=== PATIENT | female | born 1960 | race Caucasian/White ===

== ENCOUNTER → 2020-07-31 11:43 | Outpatient (CLI) | payer MEDICARE, MEDICAID, SELFPAY ==
--- NOTE | ~2020-07-31 | MM_ITS ---
EXAMINATION: MM screening dipika BI w ryder HISTORY: Screening mammogram TECHNIQUE: Craniocaudal and mediolateral oblique 3-D tomosynthesis images were obtained and synthetic 2-D images were generated. CAD analysis was submitted and interpreted. COMPARISON: No prior mammogram is currently available for comparison at this institution. BREAST PARENCHYMAL COMPOSITION: The breasts are almost entirely fatty. FINDINGS: There is no evidence of suspicious mass, calcification, or architectural distortion to sugg est malignancy in either breast. IMPRESSION: 1. No mammographic evidence of malignancy. 2. Recommend routine screening mammography in one year. BI-RADS Category 1: Negative Reviewed, dictated and finalized at location A.
--- NOTE | ~2020-07-31 | CT_ITS ---
EXAMINATION:CT lung screening DATE: 07/31/2020 12:00 INDICATION: Personal history of tobacco dependence. Current smoker with 45 pack year history. TECHNIQUE: Computed tomography (CT) of the chest was performed without intravenous contrast. Automate d exposure control and iterative reconstruction technique were employed. The dose-length product (DLP ) was 257.75 mGy-cm. COMPARISON: Chest CT 02/15/2015 FINDINGS: The lungs demonstrate mild atelectasis. In the right upper lobe, there is a new 7 mm spicul ated nodule. There is a new 4 mm nodule in right upper lobe. No pleural effusion. Partially visualize d is a 2.5 cm subcutaneous mass in the upper back to the left of midline, likely a sebaceous cyst. Th e heart size is normal. There are coronary artery calcifications. No pericardial effusion. There is e ctasia of ascending aorta measuring 4.3 cm. There is a small sliding hiatal hernia. There is moderate thoracic spondylosis. There is chronic anterior wedging of T12 vertebral body. IMPRESSION: 1. Lung-RADS category 4A: Suspicious. Noncontrast, low-dose chest CT is recommended in 3 months. Reviewed, dictated and finalized at location B. IMPRESSION: 1. Lung-RADS category 4A: Suspicious. Noncontrast, low-dose chest CT is recomme nded in 3 months.
--- NOTE | ~2020-07-31 | DEXA_ITS ---
Bone Density Report Name: Tequila Watson Age: 59 Sex: Female Ethnicity: White Date of : 1960 Indication: postmenopausal; screening for osteoporosis; height loss; prior fracture; asthma or emphysema; hysterectomy; Referring Provider: Randy, Mary Carmen Study: Bone densitometry was performed. Exam Date: July 31, 2020 Accession number: [id number] Bone Density: Region BMD T-score Z-score Classification AP Spine (L1-L4) 1.274 2.1 3.3 Normal Femoral Neck (Left) 0.731 -1.1 0.1 Osteopenia Total Hip (Left) 1.033 0.7 1.6 Normal Femoral Neck (Right) 0.729 -1.1 0.1 Osteopenia Total Hip (Right) 1.051 0.9 1.7 Normal Total Hip Mean 1.042 0.8 1.7 Normal World Health Organization criteria for BMD impression classify patients as: Normal (T-score at or above -1.0), Osteopenia (T-score between -1.0 and -2.5), or Osteoporosis (T-score at or below -2.5). 10-year Fracture Risk: FRAX not reported because: Prior hip or vertebral fracture Clinical Information Provided by Patient: Have had a previous hip or vertebral fracture Has had a low trauma fracture Smokes Has used the following medications: Vitamin D, MTV Has the following medical conditions: Asthma or Emphysema, Hysterectomy Patient maximum height was 67.0 Menopause Age: 45 No regular weight bearing exercise Drinks caffeinated beverages Onset of menses at age 13 Number of children 4 Impression: The patient has low bone mass, based on the Left Femoral Neck T-score. The patient has risk factors, including: smoking, previous fracture. Discussion: INCREASED RISK OF FRACTURE DUE TO HISTORY OF FRACTURE. The patient's previous fracture puts the patient at high risk of a future fracture. In untreated patients, the risk of osteoporotic fracture increases approximately two-fold for each 1.0 SD decrease in T-score. Low bone density is not the only risk factor for fracture; also consider factors such as patient's age, frailty or poor health, risk of falling, risk of injury, previous osteoporotic fracture, family history of osteoporosis, cigarette smoking, low body weight, etc. Not everyone with a low trauma fracture has osteoporosis; osteomalacia and other metabolic bone disorders should also be considered. Patients who have osteoporosis should be evaluated for specific diseases and conditions (secondary causes) that may cause or contribute to bone loss and fracture risk. National Osteoporosis Foundation (NOF) recommends pharmacologic intervention for patients with a prior hip or vertebral fracture regardless of BMD T-score. The patient should follow a healthful lifestyle (good nutrition with adequate calcium and vitamin D, and appropriate weight-bearing exercise). Follow-Up: Consider a repeat BMD and Vertebral Fracture Assessment (VFA) exam in 2 years or sooner if medica
== END ==
PROVIDERS: PCP Nurse Practitioner Family; Visit Provider Nurse Practitioner Family
DX: Z12.2 Encounter for screening for malignant neoplasm of respiratory organs (principal); Z87.891 Personal history of nicotine dependence; Z78.0 Asymptomatic menopausal state; Z12.31 Encounter for screening mammogram for malignant neoplasm of breast; R91.8 Other nonspecific abnormal finding of lung field
CPT/HCPCS: 71271; 77063; 77067; 77080

== ENCOUNTER 2020-08-22 12:24 | Outpatient (CLI) | payer MEDICARE, MEDICAID, SELFPAY ==
--- NOTE | 2020-08-22 | ECHO_ITS ---
Patient Info Name: Tequila Watson Age: 59 years : 1960 Gender: Female Ht: 67 in Wt: 220 lbs BSA: 2.21 m2 HR: 93 bpm BP: 145 / 80 mmHg Heart Rhythm: Sinus Rhythm Exam Date: 08/22/2020 12:54 PM Exam Location: [facility] Patient Status: Outpatient Admit Date: 08/22/2020 Staff Ordering Physician: Randy, Mary Carmen RENDON Truck Loader Overhead Crane: Loreta Malcolm RDCS Attending Provider: Randy, Mary Carmen RENDON Exam Type: CA echo doppler color flow Study Info Indications - chest pain Complete two-dimensional, color flow and Doppler transthoracic echocardiogram is performed. Summary 1. Complete two-dimensional, color flow and Doppler transthoracic echocardiogram is performed. 2. Left ventricular chamber dimension is normal. 3. Left ventricular systolic function is normal, estimated at 60-65%. 4. The left ventricular diastolic function is grade I diastolic dysfunction. 5. E/e' 9 is minimally elevated. 6. No pulmonary hypertension, estimated pulmonary arterial systolic pressure is 21 mmHg. Left Ventricle E/e' 9 is minimally elevated. Left ventricular chamber dimension is normal. Left ventricular systolic function is normal, estimated at 60-65%. The left ventricular diastolic function is grade I diastolic dysfunction. Right Ventricle Right ventricular chamber dimension is normal. Right ventricular systolic function is normal. Left Atria Left atrial chamber dimension is normal. Right Atria Right atrial chamber dimension is normal. Aortic Valve The aortic valve is trileaflet. There is no aortic valve stenosis. There is no aortic valve regurgitation. Pulmonic Valve There is no pulmonic regurgitation. Mitral Valve There is no mitral valve stenosis. There is no mitral valve regurgitation. Tricuspid Valve There is no tricuspid valve regurgitation. No pulmonary hypertension, estimated pulmonary arterial systolic pressure is 21 mmHg. Pericardium/Pleural There is no pericardial effusion. Inferior Vena Cava Normal inferior vena cava with >50% collapse upon inspiration consistent with normal right atrial pressure, 5 mmHg. Aorta The aortic root size at the sinus of Valsalva is normal. Left Ventricular Outflow Tract Name Value Normal LVOT 2D LVOT Diameter 2.1 cm LVOT Doppler LVOT Peak Gradient 7 mmHg LVOT Mean Gradient 3 mmHg LVOT VTI 24 cm LVOT VTI/AV VTI Ratio 0.8 LVOT Stroke Volume 84 ml LVOT CO 17.5 l/min LVOT CI 7.9 l/min/m2 Pulmonic Valve Name Value Normal PV Doppler PV Peak Gradient 5 mmHg Mitral Valve Name
== END 2020-08-22 12:25 | disposition home or self-care (01) ==
PROVIDERS: PCP Nurse Practitioner Family; Visit Provider Nurse Practitioner Family
DX: R07.9 Chest pain, unspecified (principal)
CPT/HCPCS: 93306

== ENCOUNTER 2020-10-19 22:30 | Emergency (ER) | payer MEDICARE, MEDICAID, SELFPAY ==
[2020-10-19 22:39] VITALS: BP 140/90; PULSE 90; RESP 20; TEMP 36.5; O2SAT 96
--- NOTE | 2020-10-19 22:44 | ECG_ITS ---
Measurements Intervals [place] Rate: 81 P: 51 [place]: 162 QRS: -23 QRSD: 104 T: 37 QT: 386 QTc: 449 Interpretive Statements SINUS RHYTHM DELAYED PRECORDIAL R/S TRANSITION INFERIOR INFARCT, AGE INDETERMINATE BASELINE WANDER- I, II, III, AVR, AVL, AVF, V1-V6 ABNORMAL ECG Electronically Signed On 10-20-2020 6:51:21 CDT by Ronan Pedroza D.O.
[2020-10-19 22:53] LABS: Basophils Absolute Auto 0.1 K/mm3 (0.0-0.1); Eosinophils Absolute Auto 0.5 K/mm3 (0-0.3); Eosinophils Percent Auto 5.2 % (0-4.4); Hematocrit 39.9 % (37.0-47.0); Hemoglobin 13.2 g/dL (12.0-15.0); Immature Granulocyte Absolute 0.04 K/mm3 (0.00-0.031); Immature Granulocyte Percent A 0.5 % (0-0.5); Lymphocytes Absolute Auto 2.91 K/mm3 (0.9-3.2); Lymphocytes Percent Auto 33.7 % (18.3-44.2); Mean Corpuscular HGB Conc 33.1 g/dl (32-36); Mean Corpuscular Hemoglobin 30.6 pg (26-34); Mean Corpuscular Volume 92.6 fl (80-100); Mean Platelet Volume 10.3 fl (7.4-10.4); Monocytes Absolute Auto 0.7 K/mm3 (0.1-0.6); Monocytes Percent Auto 7.6 % (2.6-8.5); Neutrophils Absolute Auto 4.5 K/mm3 (1.3-6.7); Platelet Count Result 252 k/mm3 (150-375); Red Blood Count 4.31 M/mm3 (4.2-5.4); Red Cell Distribution Width 13.8 % (11.5-14.5); White Blood Count 8.6 K/mm3 (4.5-10.0)
--- NOTE | 2020-10-19 23:00 | PC.NURSE ---
Called pt. for repeat ekg. no answer.
[2020-10-19 23:04] LABS: Anion Gap 7 mmol/L (8-16); Blood Urea Nitrogen 19 mg/dL (7-17); Calcium 9.2 mg/dL (8.4-10.2); Carbon Dioxide 29 mmol/L (22-30); Chloride 105 mmol/L (98-107); Estimated CRCL calculation 92 ml/min; Estimated Glomerular Filt Rate > 60; Glucose 171 mg/dL (65-105); Potassium 3.8 mmol/L (3.4-5.0); Sodium 141 mmol/L (137-145)
--- NOTE | 2020-10-19 23:10 | PC.NURSE ---
called pt. for repeat ekg 2x no answer
== END 2020-10-19 23:10 | disposition left against medical advice (07) ==
PROVIDERS: Emergency Provider Emergency Medicine; PCP Nurse Practitioner Family
DX: R06.02 Shortness of breath (principal)
CPT/HCPCS: 36415; 80048; 85025; 93005; 99199

== ENCOUNTER → 2020-11-13 10:08 | Outpatient (CLI) | payer MEDICARE, MEDICAID, SELFPAY ==
--- NOTE | ~2020-11-13 | CT_ITS ---
EXAMINATION: CT diagnostic chest wo con DATE: 11/13/2020 10:30 INDICATION: Multiple lung nodules, follow-up of abnormal lung screening CT TECHNIQUE: Computed tomography (CT) of the chest was performed without intravenous contrast. The dose -length product (DLP) was 566.37 mGy-cm. Automated exposure control and iterative reconstruction tech [facility] were employed. COMPARISON: 07/31/2020 FINDINGS: A spiculated 9 mm nodule of the right upper lobe on image 23 previously measured 7 mm. The previously described 4 mm nodule of the right upper lobe is no longer evident, likely resolved infect ion/inflammation. There is mild atelectasis of the lower lobes. The lungs are free of acute opacities . There is no pleural effusion or pneumothorax. No pathologically enlarged thoracic lymph nodes are i dentified. The heart size is normal. Ectasia of the ascending aorta is again noted measuring up to 4. 3 cm. There is calcified coronary artery atherosclerosis. There is moderate thoracic spondylosis. Chr onic anterior wedging of the T12 vertebral body is again noted. IMPRESSION: 1. Enlarging right upper lobe nodule. CT-guided biopsy is recommended. Reviewed, dictated and finalized at location A.
== END ==
PROVIDERS: PCP Nurse Practitioner Family; Visit Provider Nurse Practitioner Family
DX: R91.8 Other nonspecific abnormal finding of lung field (principal)
CPT/HCPCS: 71250

== ENCOUNTER 2021-03-06 08:25 | Emergency (ER) | payer OTHER, SELFPAY ==
[2021-03-06 08:44] VITALS: BP 90/37; PULSE 92; RESP 18; TEMP 36.4; O2SAT 98
--- NOTE | 2021-03-06 08:58 | ED.SKABFB ---
HPI - Skin/Abscess/Foreign Bdy General Chief complaint: Skin/Abscess/Foreign Body Stated complaint: rash Source: patient and RN notes reviewed Limitations: no limitations History of Present Illness HPI narrative: The patient, on several meds, presents with skin eruption. Patient states she is 1/2-week history of pink, crusting, slightly itchy and painful eruption on her face bilaterally. She has had previous skin eruption in the past; symptoms are mild, worse with scratching. No abscess/induration, S streaking, fever. She has a prior history of known hypotension, COPD Related Data Allergies Allergy/AdvReac Type Severity Reaction Status Date / Time No Known Drug Allergies Allergy Unknown Unverified 05/23/20 11:30 Review of Systems Review of Systems: General/Constitutional: No weight loss,fever Eyes: N0: Redness,discharge Ears/Nose/Throat: No: Epistaxis,ear discharge Respiratory: Denies: Hemoptysis Gastrointestinal: No Vomiting, Bleeding-rectal Skin: No Lumps, REPORTS eruption Neurologic: No Focal Weakness,Sz Hematologic: Denies: Petechiae/Purpura Psychiatric: No: Suicida ideationl All Other Systems: Reviewed and Negative [facility] Family History Family History (System 05/23/20 @ 11:30 by Rolo Snyder) Mother Hypertension Family history of coronary artery disease Father Family history of liver disease Social History Social History (System 05/23/20 @ 11:30 by Rolo Snyder) Gender identity (if verbalized by the patient): Female Comments At time of signature, agree with nursing past medical, surgical, social and family history. There is no relevant family history pertinent to the presenting complaint Exam Narrative: General Appearance: Head: Normocephalic Eye: PERRLA, Conjunctiva clear Ear: External ear normal Nose: Normal nose, Nare clear Mouth/Throat: Normal appearing Neck Exam: Supple Respiratory: Airway patent, No respiratory distress Musculoskeletal: Moves all extremities, Non tender Skin: Warm, Dry (small, impetiginous crusting isolated macular papular skin eruption of left cheek, right neck ) Neurological: A&O x3 Psychiatric: Normal mood, Normal affect Course Vital Signs Vital signs: Vital Signs Temperature 97.6 F 03/06/21 08:44 Pulse Rate 92 03/06/21 08:44 Respiratory Rate 18 03/06/21 08:44 Blood Pressure 90/37 L 03/06/21 08:44 Pulse Oximetry 98 03/06/21 08:44 Temperature 97.6 F 03/06/21 08:44 Pulse Rate 92 03/06/21 08:44 Respiratory Rate 18 03/06/21 08:44 Blood Pressure 90/37 L 03/06/21 08:44 Pulse Oximetry 98 03/06/21 08:44 Discharge Plan Discharge Clinical Impression: Impetigo Patient Disposition: Home, Self-Care Condition: Stable Instructions: Impetigo (ED) Additional Instructions: Stop clindamycin if diarrhea occurs Take clindamycin with food, antacid, and or probiotic Keep photo log of area Prescriptions: New clindamycin HCl 300 mg capsule 300 mg PO TID Qty: 21 RF: 0 mupirocin 2 % ointment 1 applic TOPICAL TID Qty: 30 RF: 0 Follow-up/Referrals: Erwin,Lacy Pedro MD [Primary Care Provider] -
[2021-03-06 09:03] VITALS: BP 112/56
== END 2021-03-06 09:03 | disposition home or self-care (01) ==
PROVIDERS: Emergency Provider Emergency Medicine; PCP Family Medicine
DX: L01.00 Impetigo, unspecified (principal); J44.9 Chronic obstructive pulmonary disease, unspecified; Z86.73 Personal history of transient ischemic attack (TIA), and cerebral infarction without residual deficits; K21.9 Gastro-esophageal reflux disease without esophagitis; G47.30 Sleep apnea, unspecified
CPT/HCPCS: 99213; G0463

== ENCOUNTER 2021-03-14 09:24 | Emergency (ER) | payer OTHER, SELFPAY ==
--- NOTE | ~2021-03-14 | XR_ITS ---
EXAMINATION: XR chest 2V DATE: 03/14/2021 09:50 INDICATION: COPD presenting with shortness of breath TECHNIQUE: frontal and lateral views of the chest were obtained. COMPARISON: Chest radiograph dated 04/11/2017 FINDINGS: Small nodular opacity projects between the anterior right first and second ribs which is better appre ciated on prior CT. No other airspace opacities, pulmonary edema, pleural effusion or pneumothorax. T he cardiomediastinal silhouette is normal. Mild thoracic spondylosis. Chronic mild anterior wedging a t T12. IMPRESSION: 1. No acute cardiopulmonary disease. 2. Right apical nodule which is been enlarging on prior chest CTs, suspicious for primary bronchogeni c carcinoma for which CT guided biopsy is been previously recommended. Reviewed, dictated and finalized at location A. BARREL LEADER IMPRESSION: 1. No acute cardiopulmonary disease. 2. Right apical nodule which is been enlarging on prior chest CTs, suspicious f or primary bronchogenic carcinoma for which CT guided biopsy is been previously recommended.
[2021-03-14 09:22] VITALS: BP 133/96; PULSE 81; RESP 16; TEMP 36.6; O2SAT 96
--- NOTE | 2021-03-14 09:51 | ED.URI ---
HPI - URI/Sore Throat General Chief Complaint: Weakness Stated Complaint: ? covid Time Seen by Provider: 03/14/21 09:50 Source: patient Mode of arrival: EMS Limitations: clinical condition History of Present Illness HPI Narrative: 60-year-old female Not Covid immunized Several family contacts are Covid positive, and another child was in the ER and tested last night with results still pending Patient reports Covid consistent symptoms such as loss of taste, subjective fever, fatigue and weakness She reports not much in the way of SOB or cough Related Data Home Medications Medication Instructions Recorded Confirmed albuterol sulfate INHALATION 03/14/21 carisoprodol 03/14/21 03/14/21 pantoprazole PO 03/14/21 tiotropium bromide [Spiriva INHALATION 03/14/21 Respimat] Allergies Allergy/AdvReac Type Severity Reaction Status Date / Time Latex, Natural Rubber AdvReac Itching Verified 03/14/21 09:33 PENDING SALE TO [facility] Past Medical History Medical History (Updated 03/14/21 @ 11:03 by Osmel Fuentes MD) Lung nodule Family History Family History Mother Hypertension Family history of coronary artery disease Father Family history of liver disease Social History Social History Gender identity (if verbalized by the patient): Female Course Vital Signs Vital signs: Vital Signs Temperature 36.6 C 03/14/21 09:22 Pulse Rate 81 03/14/21 09:22 Respiratory Rate 16 03/14/21 09:22 Blood Pressure 133/96 H 03/14/21 09:22 Pulse Oximetry 96 03/14/21 09:22 Temperature 36.6 C 03/14/21 09:22 Pulse Rate 81 03/14/21 09:22 Respiratory Rate 16 03/14/21 09:22 Blood Pressure 133/96 H 03/14/21 09:22 Pulse Oximetry 96 03/14/21 09:22 MDM - URI/Sore Throat Lab Data Result diagrams: 03/14/21 09:35 03/14/21 09:36 Labs: Lab Results 03/14/21 03/14/21 03/14/21 Range/Units 09:35 09:36 09:52 WBC 5.1 (4.5-10.0) K/mm3 RBC 4.95 (4.2-5.4) M/mm3 Hgb 15.3 H (12.0-15.0) g/dL Hct 46.1 (37.0-47.0) % MCV 93.1 (80-100) fl MCH 30.9 (26-34) pg MCHC 33.2 (32-36) g/dl RDW 14.0 (11.5-14.5) % Plt Count 189 (150-375) k/mm3 MPV 10.9 H (7.4-10.4) fl Immature Gran % (Auto) 0.2 (0-0.5) % Neut % (Auto) 59.3 (45.5-73.1) % Lymph % (Auto) 28.8 (18.3-44.2) % [place] % (Auto) 8.4 (2.6-8.5) % Eos % (Auto) 2.7 (0-4.4) % Baso % (Auto) 0.6 (0.2-1.2) % Lymph # (Auto) 1.47 (0.9-3.2) K/mm3 [place] # (Auto) 0.4 (0.1-0.6) K/mm3 Eos # (Auto) 0.1 (0-0.3) K/mm3 Baso # (Auto) 0.0 (0.0-0.1) K/mm3 Abs Immat Gran (auto) 0.01 (0.00-0.031) K/mm3 Absolute Neuts (auto) 3.0 (1.3-6.7) K/mm3 Absolute Nucleated RBC 0.0 (0.0-0.012) K/mm3 Nucleated RBC % 0.0 (0.0-0.2) % Sodium 140 (137-145) mmol/L Potassium 3.7 (3.4-5.0) mmol/L Chloride 103 (98-107) mmol/L Carbon Dioxide 29 (22-30) mmol/L Anion Gap 8 (8-16) mmol/L BUN 16 (7-17) mg/dL Creatinine 0.60 L (0.7-1.0) mg/dL Estim Creat Clear Calc 106 ml/min Estimated GFR > 60 (59 - ) Glucose 156 H (65-110) mg/dL Calcium 9.0 (8.4-10.2) mg/dL Ferritin Pending Total Bilirubin 0.4 (0.2-1.3) mg/dL AST 26 (14-36) U/L ALT 21 (4-35) U/L Alkaline Phosphatase 73 (38-126) U/L Lactate Dehydrogenase (313-618) U/L Total Protein 7.0 (6.3-8.2) g/dL Albumin 4.1 (3.5-5.1) g/dL 03/14/21 Range/Units 09:52 WBC (4.5-10.0) K/mm3 RBC (4.2-5.4) M/mm3 Hgb (12.0-15.0) g/dL Hct (37.0-47.0) % MCV (80-100) fl MCH (26-34) pg MCHC (32-36) g/dl RDW (11.5-14.5) % Plt Count (150-375) k/mm3 MPV (7.4-10.4) fl Immature Gran % (Auto) (0-0.5) % Neut % (Auto) (45.5-73.1) % Lymph % (Auto) (18.3-44.2) % [place] % (Auto) (2.6-8.5) % Eos % (Au
[2021-03-14 10:08] LABS: Basophils Percent Auto 0.6 % (0.2-1.2); Eosinophils Absolute Auto 0.1 K/mm3 (0-0.3); Eosinophils Percent Auto 2.7 % (0-4.4); Hematocrit 46.1 % (37.0-47.0); Hemoglobin 15.3 g/dL (12.0-15.0); Immature Granulocyte Absolute 0.01 K/mm3 (0.00-0.031); Immature Granulocyte Percent A 0.2 % (0-0.5); Lymphocytes Absolute Auto 1.47 K/mm3 (0.9-3.2); Lymphocytes Percent Auto 28.8 % (18.3-44.2); Mean Corpuscular HGB Conc 33.2 g/dl (32-36); Mean Corpuscular Hemoglobin 30.9 pg (26-34); Mean Corpuscular Volume 93.1 fl (80-100); Mean Platelet Volume 10.9 fl (7.4-10.4); Monocytes Absolute Auto 0.4 K/mm3 (0.1-0.6); Monocytes Percent Auto 8.4 % (2.6-8.5); Neutrophils Percent Auto 59.3 % (45.5-73.1); Platelet Count Result 189 k/mm3 (150-375); Red Blood Count 4.95 M/mm3 (4.2-5.4); White Blood Count 5.1 K/mm3 (4.5-10.0)
[2021-03-14 10:15] LABS: Lactate Dehydrogenase 377 U/L (313-618)
[2021-03-14 10:18] LABS: Alanine Aminotransferase 21 U/L (4-35); Albumin Level 4.1 g/dL (3.5-5.1); Alkaline Phosphatase 73 U/L (38-126); Anion Gap 8 mmol/L (8-16); Aspartate Amino Transferase 26 U/L (14-36); Bilirubin,Total 0.4 mg/dL (0.2-1.3); Blood Urea Nitrogen 16 mg/dL (7-17); Carbon Dioxide 29 mmol/L (22-30); Chloride 103 mmol/L (98-107); Estimated CRCL calculation 106 ml/min; Estimated Glomerular Filt Rate > 60; Glucose 156 mg/dL (65-110); Potassium 3.7 mmol/L (3.4-5.0); Sodium 140 mmol/L (137-145)
[2021-03-14 18:55] LABS: SARS-CoV-2 RNA PCR Positive
== END 2021-03-14 11:35 | disposition home or self-care (01) ==
LOC: ANHED 10:11
PROVIDERS: Emergency Provider Emergency Medicine; PCP Family Medicine
DX: U07.1 COVID-19 (principal); R91.1 Solitary pulmonary nodule
CPT/HCPCS: 36415; 71046; 80053; 82728; 83615; 85025; 99283; C9803; U0003; U0005

== ENCOUNTER 2021-04-16 03:16 | Outpatient (CLI) | payer OTHER, SELFPAY ==
[2021-04-06 15:07] VITALS: BMI 37.3
--- NOTE | 2021-04-06 15:46 | PC.NURSE ---
Addendum entered by Brooke Harrell RN 04/09/21 15:51: PT TO ARRIVE AT 0900 ON 04/16/21 FOR PROCEDURE AT 1100. Original Note: Report to the Outpatient Waiting Room, entrance under the green pavilion located off [facility], at time 0900_ on date _04/13/21 . OR Time:1100 . - You will be asked a series of questions to screen for COVID 19 for your protection. - A mask is required within the hospital. - Only one visitor is allowed at this time. Patient visitors will be guided where to wait when not with patient. Preoperative COVID Testing Requirements: No COVID Test needed if: (proof is required; if not received patient will have Rapid Test prior to entry) - Patient has received COVID Vaccine at least 14 days prior to procedure date or - Patient has positive COVID test result within last 90 days of surgery date. COVID Test needed if above criteria is not met If not COVID vaccinated a COVID test must be conducted within 72 hours of surgery and patient is asked to isolate self from time of testing until procedure. You will go to the [facility] for your COVID testing. The [employer] [facility] site is located at the corner of [address] [facility]. You will only be called if COVID results are positive and your surgeon may reschedule your elective surgery date. . - No food 6 HOURS PRIOR TO LUNG BIOPSY - Infants may have breast milk until 4 hours before surgery, formula 6 hours prior to surgery. - Children will be allowed to drink immediately following surgery. If applicable, please bring a bottle or sippy cup to assist with drinking. Juice, water, soda, and popsicles are readily available. For infants on formula, please bring formula the day of surgery. Pacifiers are allowed. Take the following medications with a SIP of water the morning of surgery: __N/A Medications to discontinue per physician N/A Date to take last dose Please no make-up, nail upper sorbian, hairspray, perfume, deodorant, or body powder the day of surgery. No jewelry (including any body piercings) or valuables the day of surgery, leave them at home. Please take a shower or bath the night before, or the morning of, surgery with an antibacterial soap. Wear comfortable, loose fitting clothing. Children are encouraged to wear pajamas. - Jewelry must be removed prior to entering the operating room. Rings and piercings that are not removed may be cut off. - The hospital will not accept responsibility for valuables. - Please leave all valuables, including medications, at home the day of surgery. If you are going home after surgery, a licensed deliver driver must drive you home. - NO public transportation without another adult. - We recommend that an adult stay with you for 24 hours following discharge. - We also recommend that you do not drive, make important decision, drink alcoholic beverages, or take any drugs that were not prescribed by your health care provider for at least 24 hours after your discharge time. For Pediatric surgeries, we recommend two adults accompany the child home (only one inside the building at this time). Follow any additional instructions given to you from your surgeon. Telephone instructions given to __CRICKET and asked if any additional questions and then verbalized understanding. Patient advised to call surgeon office or pre surgery nurse liaison [phone] if any additional questions.
--- NOTE | 2021-04-09 15:50 | PC.NURSE ---
Pt denies any medication or health history changes since initial interview (Covid + date and symptoms entered in past history). New instructions reviewed with pt. Pt denies any questions at this time.
--- NOTE | ~2021-04-16 | CT_ITS ---
EXAMINATION:CT diagnostic chest wo con DATE: 04/16/2021 11:33 INDICATION: Right lung upper lobe nodule. TECHNIQUE: Computed tomography (CT) of the chest was performed without intravenous contrast. Automate d exposure control and iterative reconstruction technique were employed. The dose-length product (DLP ) was 427.48 mGy-cm. COMPARISON: Chest CT 11/13/2020, 07/31/2020, 02/15/2015 FINDINGS: There is mild atelectasis in the inferior lungs. There is a 12 mm nodule in right lung uppe r lobe that measured 9 mm on 11/13/2020 and 7 mm on 07/31/2020. No pleural effusion. There is a 2.8 cm s ubcutaneous cyst in the superior posterior thorax, likely a sebaceous cyst. The heart size is normal. There are coronary artery calcifications. No pericardial effusion. There is ectasia of ascending aor ta measuring 4.3 cm. There is a small sliding hiatal hernia. There is moderate thoracic spondylosis. There is chronic anterior wedging of T12-L2 vertebral bodies. IMPRESSION: 1. Worsened 12 mm nodule in right lung upper lobe suspicious for primary bronchogenic carcinoma. The CT-guided lung biopsy procedure including the risks, benefits, and alternatives and possibility of ch est tube placement were discussed with the patient. Risks discussed included hemorrhage, approximatel y 1/3 risk of pneumothorax, and approximately 1/10 risk of pneumothorax severe enough to warrant ches t tube placement. I discussed with the patient my opinion that the odds of the nodule being cancer ar e 9/10 and that if it is cancer, lack of treatment would likely result in in a few years. The p atient understood and refused the biopsy. Reviewed, dictated and finalized at location A. OPERATOR IMPRESSION: 1. Worsened 12 mm nodule in right lung upper lobe suspicious for primary bronch ogenic carcinoma. The CT-guided lung biopsy procedure including the risks, bene fits, and alternatives and possibility of chest tube placement were discussed w ith the patient. Risks discussed included hemorrhage, approximately 1/3 risk of pneumothorax, and approximately 1/10 risk of pneumothorax severe enough to war rant chest tube placement. I discussed with the patient my opinion that the odd s of the nodule being cancer are 9/10 and that if it is cancer, lack of treatme nt would likely result in in a few years. The patient understood and refu sed the biopsy.
--- NOTE | 2021-04-16 09:04 | SUR.PREOP ---
0904- Patient to pre-op room 4 and very tearful crying. Will not respond to this RN upon first meeting. Educated patient on pre-op process and offered support to her. Instructed her to change out of street clothes and that I would return shortly to complete her pre-op process. At this time she verbalized understanding.
[2021-04-16 09:45] VITALS: BP 127/65; PULSE 74; RESP 16; TEMP 37.1; O2SAT 97; BMI 36.8
[2021-04-16 10:15] LABS: Mean Platelet Volume 10.5 fl (7.4-10.4); Platelet Count Result 254 k/mm3 (150-375)
[2021-04-16 10:33] LABS: INR 1.1; Prothrombin Time 13.9 Seconds (11.1-14.7)
--- NOTE | 2021-04-16 11:05 | SUR.PREOP ---
1105- Notified by Dr. Valdes patient refusing service today, IV line discontinued in CT department and patient discharged by staff in CT department.
== END 2021-04-16 11:05 | disposition home or self-care (01) ==
PROVIDERS: PCP Family Medicine; Visit Provider Radiology Diagnostic Radiology
PROC: BB24ZZZ Computerized Tomography (CT Scan) of Bilateral Lungs (ICD-10-PCS; CPT 32408; principal; 2021-04-16 11:00)
DX: R91.1 Solitary pulmonary nodule (principal)
CPT/HCPCS: 36415; 71250; 85049; 85610

== ENCOUNTER 2021-06-11 09:15 | Outpatient (CLI) | payer OTHER, SELFPAY ==
--- NOTE | ~2021-06-11 | XR_ITS ---
XR lumbar spine 2-3V DATE: 06/11/2021 09:44 INDICATION: Low back pain TECHNIQUE: AP, lateral, coned lateral lumbosacral views COMPARISON: June 06, 2013 lumbar spine June 08, 2013 MRI lumbar spine FINDINGS: There is mild anterior wedging and loss of height at T12 and L1, compatible with previously reported compression fractures on 06/08/2013. There is mild degenerative disease at L1-2. There is mildly severe degenerative disc disease and mild retrolisthesis at L2-3, L3-4 and L4-5. The L5-S1 interspace appears well preserved. The included lower thoracic and lumbar pedicles are intact. No recent fracture is evident. The sacroi liac joints are intact. IMPRESSION: Multilevel degenerative disc disease, most prominent at L2-3, L3-4, L4-5, associated mild retrolisthesis Mild chronic anterior wedge compression fracture deformities of T12 and L1 Reviewed, dictated and finalized at location A. IFIER OPERATOR
--- NOTE | ~2021-06-11 | XR_ITS ---
XR_CERV2-3V_CR DATE: 06/11/2021 09:44 INDICATION: Cervical radiculopathy TECHNIQUE: AP, open-mouth, odontoid, lateral and swimmer views COMPARISON: None FINDINGS: C1 and C2 are normally aligned and the odontoid process is intact. There is moderate loss of interspace height and mild retrolisthesis at C3-4. There is moderately severe degenerative disc disease at C5-6 with prominent anterior and posterior sp urring and minimal retrolisthesis. There is moderately prominent degenerative disc disease and prominent anterior spurring at C6-7. Uncovertebral joint spurring is noted particularly at C5-6, particularly prominent on the right, whic h would encroach upon the anterior aspect of the C6 foramina, especially on the right. No fracture or dislocation or locked facet or prevertebral soft tissue swelling is detected. IMPRESSION: Multilevel degenerative disc disease Prominent uncovertebral joint spurring at C5-6, especially on the right, with corresponding encroachm ent upon the anterior aspect of the C6 neural foramina, especially on the right Reviewed, dictated and finalized at Location A. Reviewed, dictated and finalized at location A. ETICIAN SPA IMPRESSION: Multilevel degenerative disc disease Prominent uncovertebral joint spurring at C5-6, especially on the right, with c orresponding encroachment upon the anterior aspect of the C6 neural foramina, e specially on the right
== END 2021-06-11 09:16 | disposition home or self-care (01) ==
PROVIDERS: PCP Physician Assistant; Visit Provider Physician Assistant
DX: M54.12 Radiculopathy, cervical region (principal); M51.36 Other intervertebral disc degeneration, lumbar region; M43.16 Spondylolisthesis, lumbar region; M48.54XA Collapsed vertebra, not elsewhere classified, thoracic region, initial encounter for fracture; M50.322 Other cervical disc degeneration at C5-C6 level; M77.8 Other enthesopathies, not elsewhere classified
CPT/HCPCS: 72040; 72100

== ENCOUNTER 2021-06-25 13:28 | Outpatient (CLI) | payer OTHER, SELFPAY ==
--- NOTE | ~2021-06-25 | PE_ITS ---
EXAMINATION: PET skull to mid thigh DATE: 06/25/2021 15:35 INDICATION: Right lung upper lobe nodule. TECHNIQUE: Blood glucose level was 129 mg/dL. 10.488 mCi of 18-fluorodeoxyglucose (18-FDG) was admini stered i.v. Low dose computed tomography (CT) images were acquired from the base of the brain to the proximal thighs for attenuation correction and anatomic localization. Automated exposure control was employed. Dose-length product (DLP) was 1214 mGy-cm. Positron emission tomography (PET) images were a cquired in the same distribution. COMPARISON: Chest CT 04/16/2021 FINDINGS: Head/neck: There is increased activity in the oral cavity, pharynx, glottis without abnormal CT corre late, likely physiologic. There are no pathologically enlarged lymph nodes. There is a 2.6 cm sebaceo us cyst in the posterior neck in the midline. Chest: There is a 13 mm nodule in right lung upper lobe with maximum SUV of 3.4. There is mild atelec tasis bilaterally. No pleural effusion. The heart size is normal. There are coronary artery calcifica tions. No pericardial effusion. There is ectasia of ascending aorta measuring 4.2 cm. There is a smal l sliding hiatal hernia. Abdomen/pelvis/proximal thighs: The liver, gallbladder, spleen, pancreas, adrenal glands, and kidneys are normal. There are no dilated loops of bowel. There is diverticulosis of the colon without eviden ce of diverticulitis. There are no pathologically enlarged lymph nodes. There is no free intraperiton eal fluid. There is no osseous malignancy. IMPRESSION: 1. 13 mm nodule in right lung upper lobe with maximum SUV of 3.4 that measured 12 mm on 04/16/2021, con sistent with primary bronchogenic carcinoma. CT-guided biopsy is recommended. Reviewed, dictated and finalized at location A. IMPRESSION: 1. 13 mm nodule in right lung upper lobe with maximum SUV of 3.4 that measured 12 mm on 04/16/2021, consistent with primary bronchogenic carcinoma. CT-guided bi opsy is recommended.
[2021-06-25 13:58] LABS: Glucose Point of Care 129 mg/dl (65-105)
== END 2021-06-25 13:29 | disposition home or self-care (01) ==
LOC: ANHIMG 13:31
PROVIDERS: PCP Physician Assistant; Visit Provider Nurse Practitioner
DX: R91.8 Other nonspecific abnormal finding of lung field (principal)
CPT/HCPCS: 78815; A9552

== ENCOUNTER 2021-08-07 16:34 | Outpatient (CLI) | payer OTHER, SELFPAY ==
--- NOTE | ~2021-08-07 | MR_ITS ---
EXAMINATION: MR lumbar spine wo con DATE: 08/07/2021 17:05 INDICATION: Degeneration of lumbar intervertebral discs TECHNIQUE: Magnetic resonance imaging (MRI) of the lumbar spine was performed without intravenous con trast. Sequences included sagittal T2-weighted FSE, sagittal T2-weighted FS FSE, sagittal T1-weighted FSE, and axial T2-weighted FSE. COMPARISON: 06/08/2013 FINDINGS: Is approximately 3 mm retrolisthesis L2 on L3, L3 on L4, 5 mm retrolisthesis L4 on L5 and 2 mm retrol isthesis L5 on S1. Chronic compression fractures with one third anterior vertebral body height loss a t T12. 20% anterior vertebral body height loss at L1. There are Schmorl's nodes involving the majorit y of the endplates in the lumbar and visualized lower thoracic spine. There are fibrovascular degener ative endplate changes at a few levels in the lumbar and lower thoracic spine. Marrow signal is other decker normal. Severe right-sided disc height loss at L4-L5 and severe left-sided disc height loss at L 3-L4. Moderate disc height loss at L2-L3. Mild disc height loss at the remaining levels from T10-T11 through L1-L2. The conus medullaris terminates at the cephalad aspect of L2. There is normal signal i n the caudal spinal cord. Paravertebral soft tissues are unremarkable. The following disc levels are specifically discussed: T12-L1: Disc is mildly bulging. There is mild left and moderate right facet joint osteoarthritis. The re is no neural foraminal stenosis. There is no central canal stenosis. L1-L2: Disc is bulging. There is mild to moderate bilateral facet joint osteoarthritis. There is mild bilateral neural foraminal stenosis. There is mild central canal stenosis. L2-L3: Prominent diffuse disc bulge. There is hypertrophy of the ligamentum flavum. There is mild to moderate bilateral facet joint osteoarthritis. There is moderate bilateral neural foraminal stenosis . There is severe central canal stenosis with no residual fluid signal surrounding the centrally clus tered nerve roots which appear taut caudal to the stenosis and lax cephalad to the stenosis. L3-L4: Prominent diffuse disc bulge. There is hypertrophy of the ligamentum flavum. There is moderate bilateral facet joint osteoarthritis. There is moderate bilateral neural foraminal stenosis. There i s severe central canal stenosis. L4-L5: Comment diffuse disc bulge. There is hypertrophy of the ligamentum flavum. There is moderate b ilateral facet joint osteoarthritis. There is moderate bilateral neural foraminal stenosis. There is severe central canal stenosis. L5-S1: Very small central disc protrusion. There is severe bilateral facet osteoarthritis. There is m ild left neural foraminal stenosis. There is no central canal stenosis. IMPRESSION: 1. Progression of severe lumbar spondylosis with severe central canal stenosis at L2-L3, L3-L4 and L4 -L5. Reviewed, dictated and finalized at location A. IMPRESSION: 1. Progression of severe lumbar spondylosis with severe central canal stenosis at L2-L3, L3-L4 and L4-L5.
== END 2021-08-07 16:35 | disposition home or self-care (01) ==
LOC: ANHIMG 16:37
PROVIDERS: PCP Physician Assistant; Visit Provider Family Medicine
DX: M51.36 Other intervertebral disc degeneration, lumbar region (principal); M47.896 Other spondylosis, lumbar region
CPT/HCPCS: 72148

== ENCOUNTER 2021-10-02 15:19 | Emergency (ER) | payer OTHER, SELFPAY ==
[2021-10-02 15:29] VITALS: BP 131/67; PULSE 84; RESP 18; TEMP 36.9; O2SAT 98
--- NOTE | 2021-10-02 16:04 | ED.WOUNDLAC ---
HPI - Wound/Laceration General Chief Complaint: Wound/Laceration Stated Complaint: infection right ankle Time Seen by Provider: 10/02/21 16:03 Source: patient and RN notes reviewed Mode of arrival: ambulatory Limitations: no limitations History of Present Illness HPI narrative: 61-year-old [facility] with 2 weeks of a wound to the right posterior ankle. Swelling and redness noted to surrounding tissue. Decreased range of motion secondary to pain and swelling. Swelling noted to the foot as well. Patient reports being on a round of clindamycin and on Keflex over the last 2 weeks. Onset (ago): week(s) (2) Location: other (Right posterior ankle) Associated symptoms: pain and other (Swelling, redness) Related Data Home Medications Medication Instructions Recorded Confirmed albuterol sulfate 90 mcg/actuation 2 puff inhalation DAILY PRN SOB 03/14/21 10/02/21 aerosol inhaler carisoprodol 350 mg tablet 350 mg PO DAILY PRN Muscle Pain 03/14/21 10/02/21 pantoprazole 40 mg tablet,delayed 40 mg PO DAILY 03/14/21 10/02/21 release tiotropium bromide 2.5 2 inh inhalation DAILY 03/14/21 10/02/21 mcg/actuation mist for inhalation (Spiriva Respimat) cephalexin 500 mg capsule 500 mg PO QID 10/02/21 10/02/21 cyclobenzaprine 10 mg tablet 10 mg PO DIRECTED 10/02/21 10/02/21 linaclotide 145 mcg capsule 145 mcg PO DAILY 10/02/21 10/02/21 (Linzess) mupirocin 2 % topical ointment 1 ea topical BID 10/02/21 10/02/21 terbinafine HCl 250 mg tablet 250 tablet PO DAILY 10/02/21 10/02/21 umeclidinium 62.5 mcg/actuation 62 mcg inhalation DIRECTED 10/02/21 10/02/21 blister powder for inhalation (Incruse Ellipta) Allergies Allergy/AdvReac Type Severity Reaction Status Date / Time Latex, Natural Rubber AdvReac Intermediate Itching Verified 10/02/21 16:11 Review of Systems Review of Systems: All systems reviewed & are unremarkable except as noted in HPI and below Constitutional: Constitutional: Reports no additional constitutional complaints, Denies chills and Denies fever(s) Eyes: Eyes: Reports no additional eye complaints ENT: Reports system reviewed and no additional complaints, except as documented Cardiovascular: Cardiovascular: Reports no additional cardiovascular complaints Respiratory: Respiratory: Reports no additional respiratory complaints Gastrointestinal: Gastrointestinal: Reports no additional gastrointestinal complaints Musculoskeletal: Musculoskeletal: Reports as per HPI and Reports joint swelling (Right ankle) Integumentary/Breasts: Skin/Breast: Reports as per HPI and Reports erythema (With nonhealing wound, right posterior ankle) Neurologic: Reports system reviewed and no additional complaints, except as documented Psychiatric: Psychiatric: Reports no additional psychiatric complaints Allergic/Immunologic: Allergic/Immunologic: Reports no additional allergic/immunologic complaints [facility] Past Medical History Medical History (Updated 10/02/21 @ 16:18 by Calista Venegas APRN) H/O gastroesophageal reflux (GERD) Lung cancer Lung nodule Family History Family History Mother Hypertension Family history of coronary artery disease Father Family history of liver disease Social History Social History Smoking packs per day: 0.5 Smoking cigarettes per day: 10.0 Years smoked: 45 Smoking pack-years: 22.50 Smoking status: Current every day smoker Tobacco type: cigarettes and e-cigarettes/vaping Second hand tobacco smoke exposure: No Alcohol intake: never Substance use: never Substance use type: marijuana Gender identity (if verbalized by the patient): Female Spiritual care concerns: No Comments At the time of my signature, I reviewed and agree with the nursing past medical, surgical, social, and family history. There is no relevant family his
== END 2021-10-02 16:15 | disposition short-term general hospital (02) ==
PROVIDERS: Emergency Provider Nurse Practitioner
DX: S91.001A Unspecified open wound, right ankle, initial encounter (principal); X58.XXXA Exposure to other specified factors, initial encounter; F17.210 Nicotine dependence, cigarettes, uncomplicated; F17.290 Nicotine dependence, other tobacco product, uncomplicated; K21.9 Gastro-esophageal reflux disease without esophagitis; Z85.118 Personal history of other malignant neoplasm of bronchus and lung
CPT/HCPCS: 99212; G0463

== ENCOUNTER 2022-06-01 13:50 | Outpatient (CLI) | payer OTHER, SELFPAY ==
--- NOTE | ~2022-06-01 | US_ITS ---
EXAMINATION:US venous doppler LE LT INDICATION:Left lower extremity swelling TECHNIQUE: Multiple grayscale, color flow and Doppler images of the left lower extremity deep venous systems were obtained and reviewed. COMPARISON:No prior studies for comparison. FINDINGS: The common femoral, superficial femoral and popliteal veins demonstrate normal respiratory variation, augmentation and compressibility. Color flow is also seen within the posterior tibial, pe roneal, greater saphenous and profunda veins. IMPRESSION: 1: No lower extremity deep venous thrombosis. Reviewed, dictated and finalized at location L. STORAGE TECHNICIAN
== END 2022-06-01 13:51 | disposition home or self-care (01) ==
PROVIDERS: PCP Physician Assistant; Visit Provider Orthopaedic Surgery
DX: R22.42 Localized swelling, mass and lump, left lower limb (principal)
CPT/HCPCS: 93971

== ENCOUNTER 2022-08-01 16:50 | Emergency (ER) | payer OTHER, SELFPAY ==
[2022-08-01] VITALS (32 sets, daily range): BP systolic 68–162; BP diastolic 27–129; PULSE 78–92; RESP 13–23; TEMP 36.4; O2SAT 90–100
--- NOTE | ~2022-08-01 | CT_ITS ---
EXAMINATION: CT brain wo con DATE: 08/01/2022 19:05 INDICATION: left sided REED . TECHNIQUE: Computed tomography (CT) of the head was performed without intravenous contrast. The mA wa s adjusted according to patient size. Iterative reconstruction technique was employed. The dose-lengt h product was 605.33 mGy-cm. COMPARISON: Head CT 06/25/2021; MR brain 01/12/2016; CT brain 01/12/2016. FINDINGS: No acute intracranial hemorrhage or extra-axial fluid collection. Patchy areas of white matter hypoat tenuation, most pronounced in the left temporal, parietal, and occipital lobes. Preservation of the g ray-white junction. No mass lesions detected. 7 mm [id number] midline shift, with uncal herniation on the left. No foraminal herniation no hydro cephalus. Effacement of the left lateral ventricle. No acute ischemic infarct. Unremarkable dural venous sinus attenuation. No acute osseous abnormality. The aerated spaces are clear. Mild atrophy and chronic white matter change. Atherosclerotic intracranial calcification. IMPRESSION: Multifocal areas of vasogenic white matter edema, most pronounced in the left hemisphere, with 7 mm l gap-in-oknff subfalcine herniation and uncal herniation on the left. Findings are suspicious for mult ifocal intracranial metastases. Consider MR of the brain without and with contrast for further evalua tion. Results reported telephonically to Dr. Smith by Dr. Puente at 7:17 PM on 08/01/2022. Reviewed, dictated and finalized at location K. IMPRESSION: Multifocal areas of vasogenic white matter edema, most pronounced in the left h emisphere, with 7 mm [id number] subfalcine herniation and uncal herniation o n the left. 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 Con community outreach manager MR of the brain without and with contrast for further evaluation. Results reported telephonically to Dr. Smith by Dr. Puente at 7:17 PM on 08/02/19 23.
--- NOTE | ~2022-08-01 | XR_ITS ---
EXAMINATION: XR chest 2V Exam Date/Time: 08/01/2022 17:03 CDT HISTORY: cough Comparison: 03/14/2021; PET/CT 06/25/2021. RESULT: Lines, tubes, and devices: None. Lungs and pleura: Low lung volumes with crowding. Hemidiaphragm flattening as can be seen with emphy sema. Cardiomediastinal silhouette: Stable. Other: No acute osseous or upper abdominal finding. IMPRESSION: No acute cardiopulmonary process. A known suspicious right upper lobe pulmonary nodule is not well se en in this examination, likely obscured by summation artifact. Reviewed, dictated and finalized at location K. IMPRESSION: No acute cardiopulmonary process. A known suspicious right upper lobe pulmonary nodule is not well seen in this examination, likely obscured by summation ene fact.
--- NOTE | 2022-08-01 17:02 | ECG_ITS ---
Measurements Intervals [place] Rate: 78 P: 55 DE: 156 QRS: -36 QRSD: 95 T: 60 QT: 400 QTc: 456 Interpretive Statements SINUS RHYTHM LEFT AXIS DEVIATION [QRS AXIS < -30] ABNORMAL ECG COMPARED TO ECG 10/19/2020 22:39:36 NO DIFFERENCE Electronically Signed On 08-02-2022 7:03:57 CDT by Juvencio Shah M.D.
[2022-08-01 17:11] LABS: Basophils Absolute Auto 0.1 K/mm3 (0.0-0.1); Basophils Percent Auto 0.6 % (0.2-1.2); Eosinophils Absolute Auto 0.2 K/mm3 (0-0.3); Eosinophils Percent Auto 1.4 % (0-4.4); Hematocrit 43.1 % (37.0-47.0); Hemoglobin 14.5 g/dL (12.0-15.0); Immature Granulocyte Absolute 0.05 K/mm3 (0.00-0.031); Immature Granulocyte Percent A 0.4 % (0-0.5); Lymphocytes Absolute Auto 2.37 K/mm3 (0.9-3.2); Lymphocytes Percent Auto 18.8 % (18.3-44.2); Mean Corpuscular HGB Conc 33.6 g/dl (32-36); Mean Corpuscular Hemoglobin 29.4 pg (26-34); Mean Corpuscular Volume 87.4 fl (80-100); Mean Platelet Volume 9.7 fl (7.4-10.4); Monocytes Absolute Auto 0.7 K/mm3 (0.1-0.6); Monocytes Percent Auto 5.2 % (2.6-8.5); Neutrophils Absolute Auto 9.3 K/mm3 (1.3-6.7); Neutrophils Percent Auto 73.6 % (45.5-73.1); Platelet Count Result 317 k/mm3 (150-375); Red Blood Count 4.93 M/mm3 (4.2-5.4); Red Cell Distribution Width 14.4 % (11.5-14.5); White Blood Count 12.6 K/mm3 (4.5-10.0)
[2022-08-01 17:21] LABS: Alanine Aminotransferase 28 U/L (6-35); Albumin Level 4.2 g/dL (3.5-5.1); Alkaline Phosphatase 97 U/L (38-126); Anion Gap 5 mmol/L (8-16); Aspartate Amino Transferase 24 U/L (14-36); Bilirubin,Total 0.6 mg/dL (0.2-1.3); Blood Urea Nitrogen 13 mg/dL (7-17); Calcium 8.8 mg/dL (8.4-10.2); Carbon Dioxide 31 mmol/L (22-30); Chloride 102 mmol/L (98-107); Estimated CRCL calculation 171 ml/min; Estimated Glomerular Filt Rate > 60; Glucose 174 mg/dL (65-110); Potassium 3.9 mmol/L (3.4-5.0); Sodium 138 mmol/L (137-145)
[2022-08-01] MEDS: ONDANSETRON INJ 4 MG/2 ML VIAL IV PUSH (17:57)
[2022-08-01] MEDS: SODIUM CHLORIDE 0.9% IV 1,000 ML 999 ML IV CONT (17:57)
--- NOTE | 2022-08-01 18:42 | ED.GENADULT ---
HPI - General Adult General Chief complaint: Unspecified <Tristan Gu MD - Last Filed: 08/02/22 07:36> Stated complaint: FLU LIKE S/S <Tristan Gu MD - Last Filed: 08/02/22 07:36> Time Seen by Provider: 08/01/22 16:53 <Tristan Gu MD - Last Filed: 08/02/22 07:36> History of Present Illness HPI narrative: Patient is a 61-year-old female who presents ER with complaints of fatigue. Ongoing over the last week 2 weeks. Associate with sinus congestion and cough. Drainage will make her vomit. No fevers or chills or sweats. No chest pain or chest pressure. She does report left-sided throbbing headache behind her eye that radiates around the left side of her head. No trauma. Occasional blurred vision related to the headache. Patient has history of a lung mass on the right side. She reports she saw an oncologist by the name of Dr. Santana who treated her with some medication. She was last seen 4 months ago and she reports she has eliminated the tumor. <Tristan Gu MD - Last Filed: 08/02/22 07:36> Related Data Home medications: Home Medications Medication Instructions Recorded Confirmed albuterol sulfate 90 mcg/actuation 2 puff inhalation DAILY PRN SOB 03/14/21 10/02/21 aerosol inhaler carisoprodol 350 mg tablet 350 mg PO DAILY PRN Muscle Pain 03/14/21 10/02/21 pantoprazole 40 mg tablet,delayed 40 mg PO DAILY 03/14/21 10/02/21 release tiotropium bromide 2.5 2 inh inhalation DAILY 03/14/21 10/02/21 mcg/actuation mist for inhalation (Spiriva Respimat) cephalexin 500 mg capsule 500 mg PO QID 10/02/21 10/02/21 cyclobenzaprine 10 mg tablet 10 mg PO DIRECTED 10/02/21 10/02/21 linaclotide 145 mcg capsule 145 mcg PO DAILY 10/02/21 10/02/21 (Linzess) mupirocin 2 % topical ointment 1 ea topical BID 10/02/21 10/02/21 terbinafine HCl 250 mg tablet 250 tablet PO DAILY 10/02/21 10/02/21 umeclidinium 62.5 mcg/actuation 62 mcg inhalation DIRECTED 10/02/21 10/02/21 blister powder for inhalation (Incruse Ellipta) <Tristan Gu MD - Last Filed: 08/02/22 07:36> Allergies/adverse reactions: Allergies Allergy/AdvReac Type Severity Reaction Status Date / Time Latex, Natural Rubber AdvReac Intermediate Itching Verified 08/01/22 17:00 <Tristan Gu MD - Last Filed: 08/02/22 07:36> PMFSH Past Medical History Medical History: Medical History (Updated 08/01/22 @ 21:49 by Gallo Smith MD) H/O gastroesophageal reflux (GERD) Lung cancer Lung nodule <Tristan Gu MD - Last Filed: 08/02/22 07:36> Family History Family History: Family History Mother Hypertension Family history of coronary artery disease Father Family history of liver disease <Tristan Gu MD - Last Filed: 08/02/22 07:36> Social History Social History: Social History Smoking packs per day: 0.5 Smoking cigarettes per day: 10.0 Years smoked: 45 Smoking pack-years: 22.50 Smoking status: Current every day smoker Tobacco type: cigarettes and e-cigarettes/vaping Second hand tobacco smoke exposure: No Alcohol intake: never Substance use: never Substance use type: marijuana Living arrangements: alone Gender identity (if verbalized by the patient): Female Spiritual care concerns: No <Tristan Gu MD - Last Filed: 08/02/22 07:36> Exam Narrative: GENERAL: Well-appearing, well-nourished, and in no acute distress. HEAD: Normocephalic, atraumatic. EYES: PERRL and EOMI. ENT: Mucous membranes moist. CHEST: Clear to auscultation. No respiratory distress. HEART: Regular rate and rhythm. Normal peripheral pulses. ABDOMEN: Soft, nontender, nondistended. EXTREMITIES: Normal range of motion. No edema. NEURO: Alert and oriented x3. PSYCH: Normal mood and affect. <Tristan Gu MD - Last Filed: 08/02/22 07:36>
[2022-08-01] MEDS: ACETAMINOPHEN 500 MG TABLET 1000 MG PO (19:13)
[2022-08-01 20:04] LABS: Appearance Urine Cloudy (Clear); Bacteria Urine None Seen /hpf; Bilirubin Urine Negative (Negative); Blood Urine Negative (Negative); Color Urine Yellow (Yellow); Glucose Urine UA Negative (Negative); Ketones Urine 1+ mg/dL (Negative); Leukocyte Esterase Ur Negative LEU/UL (Negative); Nitrate Urine Negative (Negative); Non Pathogenic Casts 0-2; Protein Urine Negative (Negative); RBC Urine 0-2 /hpf (0-2); Squamous Epithelial Cell Urine Occasional /hpf (Few); Urobilinogen Urine 0.2 mg/dL (<2.0); WBC Urine 0-5 /hpf; pH Urine 5.5 (5.0-9.0)
[2022-08-01 20:05] LABS: Add Urine Microscopic? YES
--- NOTE | 2022-08-01 21:34 | PC.NURSE ---
[facility] called stating the patient's bed is room 207.
--- NOTE | 2022-08-01 21:41 | PC.NURSE ---
report called to [facility] receiving RN- Sybil. No questions reported. Transfer being set up.
== END 2022-08-01 23:24 | disposition short-term general hospital (02) ==
PROVIDERS: Emergency Medicine; Emergency Provider Emergency Medicine; PCP Physician Assistant
DX: C34.90 Malignant neoplasm of unspecified part of unspecified bronchus or lung (principal); C79.31 Secondary malignant neoplasm of brain; F17.210 Nicotine dependence, cigarettes, uncomplicated
CPT/HCPCS: 36415; 70450; 71046; 80053; 81001; 85025; 93005; 96361; 96374; 96375; 99285; A9270; J1100; J2405; J7030